=== PATIENT | female | born 1940 | race Caucasian/White ===

== ENCOUNTER 2023-06-26 20:54 | Inpatient (IN) | payer MEDICARE, BC ==
[2023-06-26] MEDS ORDERED: Ondansetron PF 4 MG/2 ML Vial IVP PRN (23:36)
[2023-06-27 01:16] LABS: Troponin I 2.634 ng/mL (< 0.028)
[2023-06-27 01:24] VITALS: BMI 26.3
[2023-06-27] MEDS ORDERED: Nitroglycerin 2% Ointment 1 INCH/1 GM Packet ONE ×3 (02:29→17:17)
[2023-06-27] MEDS: Nitroglycerin 2% Ointment 1 INCH/1 GM Packet TOP SCH ×5 (02:40→23:59)
[2023-06-27 04:57] LABS: #Eosinphils 0.2 thou/uL (0.0-0.7); #Monocytes 0.7 thou/uL (0.11-0.59); %Basophils 0.3 % (0.0-1.0); %Eosinophils 2.1 % (0.0-10.0); %Lymphocytes 33.9 % (21.0-51.0); %Monocytes 9.8 % (0.0-10.0); %Neutrophils 53.5 % (42.0-75.0); Hemoglobin 12.5 g/dL (12.0-16.0); Mean Corpuscular HGB CONC 33.8 g/dL (32.0-36.0); Mean Corpuscular Volume 88.9 fl (78.0-98.0); Mean Platelet Volume 12.3 fL (7.4-10.4); Platelet Count 129 10x3/uL (130-400); RBC Distribution Width 12.6 % (11.5-14.5); Red Blood Cell (RBC) Count 4.16 mill/uL (4.20-5.40); White Blood Cell (WBC) Count 7.5 10x3/uL (4.8-10.8)
[2023-06-27 05:06] LABS: Hemoglobin A1c 5.9 % (4.0-6.0)
[2023-06-27 05:22] LABS: Anion Gap 13 mmol/L (10-20); BUN (Urea Nitrogen) 26 mg/dL (9.8-20.1); Calc. Creatinine Clearance 50 mL/min (70-130); Calcium 8.9 mg/dL (7.8-10.44); Carbon Dioxide 25 mmol/L (23-31); Cardiac Risk 3.3 (Less than 4.5); Chloride 105 mmol/L (98-107); Cholesterol 125 mg/dl (< 200 Desired); Estimated GFR 55; Glucose 111 mg/dL (83-110); HDL Cholesterol 38 mg/dL (>60 Neg Risk); LDL Cholesterol, Calculated 67 mg/dL; Potassium 3.5 mmol/L (3.5-5.1); Sodium 139 mmol/L (136-145); Triglycerides 102 mg/dL (Less than 150)
[2023-06-27 05:31] LABS: Troponin I 4.304 ng/mL (< 0.028)
[2023-06-27] MEDS ORDERED: Nitroglycerin 2% Ointment 1 INCH/1 GM Packet TOP SCH (06:00)
[2023-06-27] MEDS: Aspirin 81 mg Enteric Coated Tablet PO SCH (09:55)
[2023-06-27] MEDS ORDERED: Communication Order-Pharmacy FS SCH (11:15)
[2023-06-27] MEDS ORDERED: Metoprolol Tartrate 25 MG TAB PO SCH (11:15)
[2023-06-27] MEDS: diphenhydrAMINE 50 MG CAP PO SCH ×2 (11:53→17:21)
[2023-06-27] MEDS: predniSONE 20 MG TAB PO SCH ×2 (11:53→17:21)
[2023-06-27] MEDS: Acetaminophen 325 MG TAB PO PRN (16:53)
[2023-06-27] MEDS ORDERED: Rosuvastatin 20 MG TAB PO SCH (21:00)
[2023-06-27] MEDS: Rosuvastatin 5 MG TAB PO SCH (21:54)
[2023-06-27] MEDS: Famotidine 20 MG TAB PO SCH (21:54)
[2023-06-27] MEDS: Metoprolol Tartrate 25 MG TAB PO SCH (21:54)
[2023-06-27] MEDS: Polyethylene Glycol 3350 17 GM Packet PO PRN (21:56)
[2023-06-28] MEDS: diphenhydrAMINE 50 MG CAP PO SCH ×3 (00:07→12:04)
[2023-06-28] MEDS: predniSONE 20 MG TAB PO SCH ×3 (00:07→12:04)
[2023-06-28 04:24] LABS: #Monocytes 0.3 thou/uL (0.11-0.59); #Neutrophils 8.7 thou/uL (1.40-6.50); %Basophils 0.2 % (0.0-1.0); %Lymphocytes 13.8 % (21.0-51.0); %Monocytes 2.8 % (0.0-10.0); %Neutrophils 82.8 % (42.0-75.0); Hematocrit 39.5 % (36.0-47.0); Hemoglobin 13.4 g/dL (12.0-16.0); Mean Corpuscular HGB CONC 33.9 g/dL (32.0-36.0); Mean Corpuscular Hemoglobin 29.9 pg (27.0-31.0); Mean Corpuscular Volume 88.2 fl (78.0-98.0); Platelet Count 138 10x3/uL (130-400); RBC Distribution Width 12.5 % (11.5-14.5); Red Blood Cell (RBC) Count 4.48 mill/uL (4.20-5.40); White Blood Cell (WBC) Count 10.5 10x3/uL (4.8-10.8)
[2023-06-28 05:03] LABS: Anion Gap 13 mmol/L (10-20); BUN (Urea Nitrogen) 21 mg/dL (9.8-20.1); Calc. Creatinine Clearance 50 mL/min (70-130); Calcium 9.3 mg/dL (7.8-10.44); Carbon Dioxide 24 mmol/L (23-31); Chloride 105 mmol/L (98-107); Estimated GFR 55; Glucose 138 mg/dL (83-110); Potassium 3.8 mmol/L (3.5-5.1); Sodium 138 mmol/L (136-145)
[2023-06-28] MEDS ORDERED: Sodium Chloride 0.9% 1,000 ML IV SCH ×2 (06:00→09:44)
[2023-06-28] MEDS: Nitroglycerin 2% Ointment 1 INCH/1 GM Packet TOP SCH ×3 (06:14→17:15)
[2023-06-28] MEDS ORDERED: fentaNYL 50 mcg/mL 1 mL Vial ONE (07:26)
[2023-06-28] MEDS ORDERED: Midazolam HCl 2 mg/2 ml Vial ONE (07:26)
[2023-06-28] MEDS ORDERED: Heparin 10,000 UNITS/ 10 ML VIAL ONE (07:26)
[2023-06-28] MEDS ORDERED: Nitroglycerin 50 MG/250 ML BOT 0 ML ONE (07:26)
[2023-06-28] MEDS ORDERED: Lidocaine 1% (PF) 30 ML VIAL ONE (07:26)
[2023-06-28] MEDS: Aspirin 81 mg Enteric Coated Tablet PO SCH (07:49)
[2023-06-28] MEDS: Famotidine 20 MG TAB PO SCH (07:50)
[2023-06-28] MEDS: Metoprolol Tartrate 25 MG TAB PO SCH ×2 (07:50→21:31)
[2023-06-28] MEDS ORDERED: Nitroglycerin 0.4 MG TAB (25 Tab Bottle) SL PRN (09:43)
[2023-06-28] MEDS ORDERED: Sodium Chloride 0.9% 200 ML IV PRN (09:43)
[2023-06-28] MEDS: Acetaminophen 325 MG TAB PO PRN (14:24)
[2023-06-28] MEDS: Rosuvastatin 5 MG TAB PO SCH (21:31)
[2023-06-28] MEDS: Polyethylene Glycol 3350 17 GM Packet PO PRN (21:47)
[2023-06-29] MEDS ORDERED: Melatonin 3 MG TAB PO PRN (01:18)
[2023-06-29] MEDS: Nitroglycerin 2% Ointment 1 INCH/1 GM Packet TOP SCH ×3 (01:25→11:27)
[2023-06-29 05:05] LABS: #Monocytes 0.9 thou/uL (0.11-0.59); #Neutrophils 12.8 thou/uL (1.40-6.50); %Basophils 0.1 % (0.0-1.0); %Lymphocytes 12.1 % (21.0-51.0); %Monocytes 5.6 % (0.0-10.0); %Neutrophils 81.7 % (42.0-75.0); Hematocrit 35.7 % (36.0-47.0); Mean Corpuscular HGB CONC 33.6 g/dL (32.0-36.0); Mean Corpuscular Hemoglobin 30.5 pg (27.0-31.0); Mean Corpuscular Volume 90.8 fl (78.0-98.0); Mean Platelet Volume 12.2 fL (7.4-10.4); Platelet Count 124 10x3/uL (130-400); RBC Distribution Width 12.8 % (11.5-14.5); Red Blood Cell (RBC) Count 3.93 mill/uL (4.20-5.40); White Blood Cell (WBC) Count 15.6 10x3/uL (4.8-10.8)
[2023-06-29 05:23] LABS: Anion Gap 12 mmol/L (10-20); BUN (Urea Nitrogen) 20 mg/dL (9.8-20.1); Calc. Creatinine Clearance 52 mL/min (70-130); Calcium 8.8 mg/dL (7.8-10.44); Carbon Dioxide 26 mmol/L (23-31); Chloride 105 mmol/L (98-107); Estimated GFR 57; Glucose 103 mg/dL (83-110); Potassium 4.3 mmol/L (3.5-5.1); Sodium 139 mmol/L (136-145)
[2023-06-29] MEDS: Aspirin 81 mg Enteric Coated Tablet PO SCH (08:49)
[2023-06-29] MEDS: Metoprolol Tartrate 25 MG TAB PO SCH ×2 (08:49→20:53)
[2023-06-29] MEDS ORDERED: Bisacodyl 10 MG SUPP PR PRN (11:35)
[2023-06-29] MEDS: Rosuvastatin 5 MG TAB PO SCH (20:53)
[2023-06-30 08:36] LABS: #Eosinphils 0.1 thou/uL (0.0-0.7); #Monocytes 0.5 thou/uL (0.11-0.59); #Neutrophils 5.4 thou/uL (1.40-6.50); %Basophils 0.3 % (0.0-1.0); %Eosinophils 0.6 % (0.0-10.0); %Lymphocytes 29.8 % (21.0-51.0); %Monocytes 5.7 % (0.0-10.0); Hematocrit 40.5 % (36.0-47.0); Hemoglobin 13.2 g/dL (12.0-16.0); Mean Corpuscular HGB CONC 32.6 g/dL (32.0-36.0); Mean Platelet Volume 11.9 fL (7.4-10.4); Platelet Count 135 10x3/uL (130-400); White Blood Cell (WBC) Count 8.6 10x3/uL (4.8-10.8)
[2023-06-30 09:05] LABS: Anion Gap 12 mmol/L (10-20); BUN (Urea Nitrogen) 22 mg/dL (9.8-20.1); Calc. Creatinine Clearance 47 mL/min (70-130); Calcium 9.2 mg/dL (7.8-10.44); Carbon Dioxide 28 mmol/L (23-31); Chloride 102 mmol/L (98-107); Estimated GFR 50; Glucose 106 mg/dL (83-110); Potassium 4.1 mmol/L (3.5-5.1); Sodium 138 mmol/L (136-145)
[2023-06-30] MEDS: Metoprolol Tartrate 25 MG TAB PO SCH (09:15)
[2023-06-30] MEDS: Aspirin 81 mg Enteric Coated Tablet PO SCH (09:15)
[2023-06-30 11:21] VITALS: BP 119/62; TEMP 97.7
== END 2023-06-30 15:10 | disposition home or self-care (01) | DRG 282 ==
LOC: 2NO 22:35 → OBSVTOIN 06-27 05:39
PROVIDERS: ADMIT Internal Medicine; ATTEND Internal Medicine
PROC: 4A023N8 Measurement of Cardiac Sampling and Pressure, Bilateral, Percutaneous Approach (ICD-10-PCS; principal; 2023-06-28)
PROC: B2111ZZ Fluoroscopy of Multiple Coronary Arteries using Low Osmolar Contrast (ICD-10-PCS; 2023-06-28)
DX: I21.4 Non-ST elevation (NSTEMI) myocardial infarction (principal); I10 Essential (primary) hypertension; E78.5 Hyperlipidemia, unspecified; I44.30 Unspecified atrioventricular block; I25.10 Atherosclerotic heart disease of native coronary artery without angina pectoris; I08.3 Combined rheumatic disorders of mitral, aortic and tricuspid valves; Z88.5 Allergy status to narcotic agent; Z90.710 Acquired absence of both cervix and uterus; Z90.49 Acquired absence of other specified parts of digestive tract; Z98.890 Other specified postprocedural states; Z88.2 Allergy status to sulfonamides; Z88.1 Allergy status to other antibiotic agents; Z88.8 Allergy status to other drugs, medicaments and biological substances
CPT/HCPCS: 36415; 80048; 80061; 83036; 84484; 85025; 85347; 93005; 93010; 93306; 93460; 93798; 94760; 99152; 99153; C1751; C1769; C1894; J1644; J1650; J2001; J2250; J3010; J7050; J7512